=== PATIENT | male | born 2000 | race Two or more races ===

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

== ENCOUNTER 2022-12-24 12:21 | Emergency (ER) | payer MEDICAID ==
[2022-12-24] MEDS ORDERED: Amoxicillin/Clavulanate K 875-125 MG Tab PO ONE (12:22)
== END 2022-12-24 13:14 | disposition home or self-care (01) ==
LOC: FB.ED 12:21
DX: S71.152A Open bite, left thigh, initial encounter (principal); W54.0XXA Bitten by dog, initial encounter
CPT/HCPCS: 99283; A9270

== ENCOUNTER 2023-07-14 14:31 | Emergency (ER) | payer MEDICAID ==
[2023-07-14] MEDS ORDERED: Lidocaine 2% Viscous Solution 15 ML UD PO ONE ×2 (14:40→15:02)
== END 2023-07-14 15:05 | disposition home or self-care (01) ==
LOC: FB.ED 14:31
DX: K05.10 Chronic gingivitis, plaque induced (principal)
CPT/HCPCS: 99282; A9270-GY

== ENCOUNTER 2024-10-11 21:26 | Emergency (ER) | payer SELFPAY ==
[2024-10-11] MEDS: Sodium Chloride 0.9% 1,000 ML IV ONE (21:51)
[2024-10-11 21:52] LABS: EOSINOPHILS ABSOLUTE AUTO 0.1 x10-3/uL (0.0-0.6); HEMOGLOBIN 17.7 g/dL (12.9-17.7); PLATELET COUNT,PLT 191 x10(3)uL (117-477)
[2024-10-11 21:54] LABS: BLOOD UREA NITROGEN,BUN 15 mg/dL (7-18); BUN/CREATININE RATIO 11.5 (9-20); CALCIUM 9.4 mg/dL (8.6-10.2); CARBON DIOXIDE,CO2 26 mmol/L (21-32); CHLORIDE,CL 102 mmol/L (100-110); CREATININE 1.3 mg/dL (0.70-1.30); ESTIMATED GFR 80 mL/min (>60); GLUCOSE RANDOM 94 mg/dL (80-116); POTASSIUM,K 3.6 mmol/L (3.5-5.3); SODIUM,NA 140 mmol/L (135-145)
[2024-10-11 22:04] LABS: TROPONIN I 10.3 pg/mL (4.0-60.3)
[2024-10-11 22:05] LABS: A/G RATIO 1.1; ALANINE AMINOTRANSFERASE,ALT 28 U/L (12-36); ALBUMIN 4.3 g/dL (3.5-5.2); ALKALINE PHOSPHATASE 133 IU/L (56-112); ASPARTATE AMNIOTRANSFERASE,AST 22 IU/L (5-25); BILIRUBIN TOTAL 0.6 mg/dL (0.1-1.3); C-REACTIVE PROTEIN < 0.50 mg/dL (<0.50); PROTEIN TOTAL,TP 8.3 g/dL (6.0-8.0)
[2024-10-11 22:08] LABS: BASOPHILS PERCENT AUTO 0.4 % (0.3-3.8); EOSINOPHILS PERCENT AUTO 1.4 % (0.1-6.8); HEMATOCRIT 50.4 % (38.3-50.1); LYMPHOCYTES ABSOLUTE AUTO 1.3 x10-3/uL (0.5-4.5); LYMPHOCYTES PERCENT AUTO 14.7 % (15.8-45.3); MEAN CORPUSCULAR HEMOGLOBIN 29.6 pg (27.0-33.3); MEAN CORPUSCULAR VOLUME 84.4 fL (80.8-98.7); MONOCYTES ABSOLUTE AUTO 0.9 x10-3/uL (0.0-1.2); NEUTROPHILS ABSOLUTE AUTO 6.5 x10-3/uL (1.7-6.9); NEUTROPHILS PERCENT AUTO 73.5 % (40.3-71.8); RED BLOOD CELL COUNT 5.97 x10(6)uL (3.90-5.90); RED CELL DISTRIBUTION WIDTH 13.3 % (12.4-15.0); WHITE BLOOD CELL COUNT,WBC 8.8 x10-3/uL (3.2-10.1)
== END 2024-10-11 23:08 | disposition home or self-care (01) ==
LOC: FB.ED 21:26
DX: R07.89 Other chest pain (principal); Z79.899 Other long term (current) drug therapy
CPT/HCPCS: 36415; 71045; 80053; 84484; 85025; 86140; 87428; 96360; 99285; J7030